=== PATIENT | male | born 1945 | race Caucasian/White ===

== ENCOUNTER 2022-11-22 09:01 | Day surgery (SDC) | payer OTHER ==
[~2022-11-22] VITALS: Ht 180.3 cm; Wt 90.0 kg
[2022-11-22 09:15] VITALS: BP 123/84
[2022-11-22] MEDS ORDERED: APIX5TAB3 PO (09:15)
[2022-11-22] MEDS ORDERED: LOP25T PO (09:15)
[2022-11-22] MEDS ORDERED: ATOR20TA66 PO (09:15)
[2022-11-22] MEDS ORDERED: MIDAZolam 1 MG/ML 5ML VIAL ONE (09:50)
[2022-11-22] MEDS ORDERED: fentaNYL/PF 50MCG/1 ML 2ML syringe ONE (09:50)
[2022-11-22 10:45] VITALS: BP 144/81
[2022-11-22 10:55] VITALS: BP 146/72
[2022-11-22 11:05] VITALS: BP 137/73
[2022-11-22 11:15] VITALS: BP 124/74
== END 2022-11-22 11:30 | disposition home or self-care (01) ==
LOC: GI LAB 09:01
PROVIDERS: ATTEND Internal Medicine Gastroenterology
DX: R15.9 Full incontinence of feces (principal); D12.0 Benign neoplasm of cecum; D12.2 Benign neoplasm of ascending colon; D12.3 Benign neoplasm of transverse colon; K63.5 Polyp of colon; K57.30 Diverticulosis of large intestine without perforation or abscess without bleeding; K64.8 Other hemorrhoids; Z87.891 Personal history of nicotine dependence; Z85.46 Personal history of malignant neoplasm of prostate; Z72.89 Other problems related to lifestyle; Z95.0 Presence of cardiac pacemaker; Z79.01 Long term (current) use of anticoagulants; Z79.899 Other long term (current) drug therapy
CPT/HCPCS: 45380; 45385; 99153; C1889; G0500; J2250; J3010; J7030; Z7512; 99152; A4620

== ENCOUNTER 2023-12-23 12:21 | Outpatient (CLI) | payer OTHER ==
[~2023-12-23 12:21] MED LIST: APIX5TAB3 PO; ATOR20TA66 PO; LOP25T PO
== END 2023-12-23 23:59 | disposition home or self-care (01) ==
LOC: CARD DIAG 12:21
PROVIDERS: ATTEND Chiropractor
DX: I08.0 Rheumatic disorders of both mitral and aortic valves (principal); I25.9 Chronic ischemic heart disease, unspecified
CPT/HCPCS: 93306

== ENCOUNTER 2024-06-01 13:02 | Day surgery (SDC) | payer OTHER ==
[2024-06-01] VITALS (7 sets, daily range): BP systolic 118–157; BP diastolic 54–83; PULSE 79–92; RESP 14; TEMP 98.2; O2SAT 96–97
[~2024-06-01] VITALS: Ht 180.3 cm; Wt 89.7 kg
[2024-06-01] MEDS ORDERED: ROPI0.2534 PO (13:45)
[2024-06-01] MEDS ORDERED: CYAN500T71 PO (13:45)
[2024-06-01] MEDS ORDERED: [UNRECOGNIZED DRUG - CODE] PO (13:45)
[2024-06-01] MEDS ORDERED: TRAZ-251 PO (13:45)
[2024-06-01] MEDS ORDERED: EZET10TA6 PO (13:45)
[2024-06-01] MEDS ORDERED: ATOR80TA PO (13:45)
[2024-06-01] MEDS ORDERED: ASPI-611 PO (13:45)
[2024-06-01] MEDS ORDERED: HYDR-3972 PO (13:45)
[2024-06-01] MEDS ORDERED: L. A1TAB15 (13:45)
[2024-06-01] MEDS ORDERED: PANT20TA18 PO (13:45)
[2024-06-01 13:57] LABS: BASOPHILS % (AUTO) 0.4 % (0-1); EOSINOPHILS # (AUTO) 0.2 X10'3 (0-0.9); EOSINOPHILS % (AUTO) 2.7 % (0-6); HEMATOCRIT 40.9 % (42.0-52.0); HEMOGLOBIN 13.9 g/dl (14.0-17.9); LYMPHOCYTES % (AUTO) 31.5 % (21-51); MEAN CORPUSCULAR HEMOGLOBIN 30.5 PG (27.0-31.0); MEAN CORPUSCULAR HGB CONC 33.9 g/dL (33.0-36.5); MEAN CORPUSCULAR VOLUME 89.8 FL (78-98); MEAN PLATELET VOLUME 9.1 FL (7.4-10.4); MONOCYTES # (AUTO) 0.4 X10'3 (0-0.9); MONOCYTES % (AUTO) 6.2 % (2-12); NEUTROPHILS # (AUTO) 3.7 X10'3 (1.8-7.7); NEUTROPHILS % (AUTO) 59.2 % (42-75); PLATELET COUNT 214 X10'3 (140-440); RED BLOOD COUNT 4.56 X10'6 (4.70-6.10); RED CELL DISTRIBUTION WIDTH 14.2 % (11.5-14.5); WHITE BLOOD COUNT 6.2 X10'3 (4.5-11.0)
[2024-06-01 14:05] LABS: PROTHROMBIN TIME 10.4 SECONDS (9.0-12.0)
[2024-06-01 14:10] LABS: ALBUMIN 3.5 G/DL (3.4-5.0); ANION GAP 9 (8-16); BLOOD UREA NITROGEN 20 MG/DL (7-18); BUN/CREATININE RATIO 23.3 (10.0-20.0); CALCIUM 9.1 MG/DL (8.5-10.1); CHLORIDE 106 MMOL/L (99-107); CHOLESTEROL 122 MG/DL (0-200); CREATININE 0.86 MG/DL (0.60-1.10); GLUCOSE 103 MG/DL (70-104); HDL CHOLESTEROL 60 MG/DL (35-60); LDL CHOLESTEROL 56 MG/DL (50-100); POTASSIUM 4.1 MMOL/L (3.5-5.1); SODIUM 141 MMOL/L (135-145); TOTAL CARBON DIOXIDE 26.3 MMOL/L (24-32); TRIGLYCERIDES 53 MG/DL (20-135); eGFR 86 ML/MIN
[2024-06-01] MEDS: diphenhydrAMINE 25mg capsule PO PRN (14:40)
[2024-06-01] MEDS: normal saline 1,000 ML IV SCH (14:40)
[2024-06-01] MEDS ORDERED: LORazepam 0.5 MG tablet PO PRN (14:40)
[2024-06-01] MEDS ORDERED: midazolam 1 mg/ML 2ml injection ONE (15:24)
[2024-06-01] MEDS ORDERED: verapamil 2.5 mg/ml inj IV ONE (15:24)
[2024-06-01] MEDS ORDERED: LIDOcaine 1% (10mg/ml) 2ml vial ONE (15:24)
[2024-06-01] MEDS ORDERED: fentaNYL/PF 50MCG/1 ML 2ML syringe ONE (15:25)
[2024-06-01] MEDS ORDERED: nitroGLYCERIN 500mcg/5mL D5W 5 ML IV ONE (15:25)
[2024-06-01] MEDS ORDERED: heparin 1,000unit/ml 10ml vial 10 ML ONE (15:25)
[2024-06-01] MEDS ORDERED: iohexol 350MG/ML 100ml bottle IV ONE (15:25)
[2024-06-01] MEDS ORDERED: iohexol 350 MG/ML 50ML vial IV ONE (15:53)
[2024-06-01] MEDS ORDERED: ondansetron/PF 4mg/2ml inj IV PRN (16:15)
[2024-06-01] MEDS ORDERED: nitroGLYCERIN 0.4mg SUBLingual tab SL PRN (16:20)
[2024-06-01] MEDS ORDERED: proCHLORperazine 10 MG/2 ml inj IV PRN (16:20)
[2024-06-01] MEDS ORDERED: HYDROcodone/acetaminophen 5mg/325mg tablet PO PRN (16:20)
[2024-06-01] MEDS ORDERED: HYDROcodone/acetaminophen 10/325mg tab PO PRN (16:20)
[2024-06-01] MEDS ORDERED: OXAZEpam 15mg capsule PO PRN (16:20)
== END 2024-06-01 18:15 | disposition home or self-care (01) ==
LOC: SSTAY O 13:02
PROVIDERS: ATTEND Student in an Organized Health Care Education/Training Program
DX: R94.39 Abnormal result of other cardiovascular function study (principal); I25.10 Atherosclerotic heart disease of native coronary artery without angina pectoris; I10 Essential (primary) hypertension; E11.9 Type 2 diabetes mellitus without complications; E78.00 Pure hypercholesterolemia, unspecified; I48.91 Unspecified atrial fibrillation; Z86.73 Personal history of transient ischemic attack (TIA), and cerebral infarction without residual deficits; Z85.46 Personal history of malignant neoplasm of prostate; Z79.01 Long term (current) use of anticoagulants; Z79.82 Long term (current) use of aspirin; Z79.899 Other long term (current) drug therapy
CPT/HCPCS: 36415; 80048; 80061; 85025; 85610; 93005; 93458; 99152; A6258; J1644; J2250; J3010; J3490; J7030; Q0163; Q9967; A6402; C1894